=== PATIENT | female | born 1990 | race Caucasian/White ===

== ENCOUNTER 2017-09-11 19:42 | Emergency (ER) | payer MEDICAID, SELFPAY ==
[2017-09-11 20:39] LABS: Bilirubin Negative (Negative); Blood, Urine Negative (Negative); Clarity Clear (Clear); Glucose, Urine (Dipstick) Negative (Negative); Leukocyte Negative (Negative); Nitrite Negative (Negative); Protein, Urine (Dipstick) Negative (Neg-Trace); Specific Gravity, Urine 1.015 (1.005-1.030); Urobilinogen 0.2 mg/dL (0.2-1.0)
[2017-09-11 20:50] LABS: #Basophils 0.1 thou/uL (0.0-0.2); #Eosinphils 0.1 thou/uL (0.0-0.7); #Lymphocytes 0.4 thou/uL (1.20-3.40); #Monocytes 0.7 thou/uL (0.11-0.59); #Neutrophils 9.7 thou/uL (1.40-6.50); %Basophils 0.8 % (0.0-1.0); %Eosinophils 0.5 % (0.0-10.0); %Lymphocytes 3.8 % (21.0-51.0); %Monocytes 6.1 % (0.0-10.0); %Neutrophils 88.9 % (42.0-75.0); Hypochromia SLIGHT = 6-15 cells (100X) (0-5/hpf); MDiff Complete? YES; Mean Corpuscular HGB CONC 29.8 g/dL (32.0-36.0); Mean Corpuscular Hemoglobin 22.1 pg (27.0-31.0); Mean Platelet Volume 6.4 fL (7.4-10.4); Microcytosis SLIGHT = 6-15 cells (100X) (0-5/hpf); Ovalocytes SLIGHT = 2-5 cells (100X) (0-1/hpf); PLT Morphology Comment Appears Adequate; Platelet Count 258 thou/uL (130-400); RBC Distribution Width 21.8 % (11.5-14.5); Red Blood Cell (RBC) Count 4.06 mill/uL (4.20-5.40); Stomatocytes SLIGHT = 2-5 cells (100X) (0-1/hpf); White Blood Cell (WBC) Count 10.9 thou/uL (4.8-10.8)
[2017-09-11 20:54] LABS: ALT (SGPT) 12 U/L (8-55); AST (SGOT) 11 U/L (5-34); Albumin 4.3 g/dL (3.5-5.0); Alkaline Phosphatase 49 U/L (40-150); Anion Gap 15 mmol/L (10-20); BUN (Urea Nitrogen) 7 mg/dL (7.0-18.7); Bilirubin, Total 0.5 mg/dL (0.2-1.2); Calc. Creatinine Clearance 0 mL/min (70-130); Carbon Dioxide 22 mmol/L (22-29); Chloride 104 mmol/L (98-107); Estimated GFR-MDRD Greater than 90; Globulin 3.1 g/dL (2.4-3.5); Glucose 88 mg/dL (70-105); Lipase 22 U/L (8-78); Potassium 3.6 mmol/L (3.5-5.1); Protein, Total 7.4 g/dL (6.0-8.3); Sodium 137 mmol/L (136-145)
--- NOTE | 2017-09-12 07:34 | ULT ---
PELVIC ULTRASOUND WITH DOPPLER EVALUATION TRANSVAGINAL AND TRANSABDOMINAL PELVIC ULTRASOUND PERFORMED: CLINICAL HISTORY: Pelvic pain, evaluation for ectopic . FINDINGS: Gestational sac is present with an internal pole which by size criteria corresponds to an appro ximately 9 week 1 day gestation. cardiac activity is elicited, documented at 197 b.p.m. Yolk sac is visualized, with diameter of approximately 5 mm. Doppler evaluation is performed which reveal s vascularity and flow to the right ovary. Flow is not confirmed within the left ovary on the basis of this exam. There is a subcentimeter focus of altered echotexture in the right ovary, too small to definitively characterize. IMPRESSION: 1. Evidence of a live intrauterine gestation as above. 2. Incomplete assessment of the left ovary. 3. As clinically indicated, continued imaging followup may be obtained. POS: SPEEDY
[2017-09-13 22:33] LABS: Chlamydia by PCR Not Detected (NotDetected); GC by PCR Not Detected (NotDetected)
== END 2017-09-11 23:03 | disposition home or self-care (01) ==
LOC: SCSER 19:42
DX: O99.011 Anemia complicating pregnancy, first trimester (principal); O99.611 Diseases of the digestive system complicating pregnancy, first trimester; K59.00 Constipation, unspecified; O99.89 Other specified diseases and conditions complicating pregnancy, childbirth and the puerperium; Z3A.08 8 weeks gestation of pregnancy; R11.0 Nausea; R53.81 Other malaise
CPT/HCPCS: 76856; 80053; 81003; 83690; 84702; 85025; 87480; 87491; 87510; 87591; 87660; 93976

== ENCOUNTER 2018-08-29 21:32 | Emergency (ER) | payer SELFPAY ==
[2018-08-29] MEDS ORDERED: Ketorolac Tromethamine 30 MG/ML VIAL ONE (21:47)
== END 2018-08-29 22:21 | disposition home or self-care (01) ==
LOC: SCSER 21:32
DX: N64.4 Mastodynia (principal)
CPT/HCPCS: 96372; J1885